=== PATIENT | female | born 1990 | race Caucasian/White ===

== ENCOUNTER 2016-07-26 02:56 | Emergency (ER) | payer OTHER ==
[~2016-07-26] VITALS: Ht 157.5 cm; Wt 46.7 kg
[~2016-07-26 02:56] MED LIST: NO HOME MEDS
--- NOTE | 2016-07-26 05:20 | REPUSA ---
CLINICAL HISTORY: Neck pain. TECHNIQUE: Multiple axial images were obtained through the cervical spine. Images were also reconstru cted in coronal and sagittal planes. The study was performed without IV contrast. COMMENTS: There is no fracture or spondylolisthesis visualized. The paraspinal soft tissues are unremarkable. T here are no lytic or blastic lesions. Straightening of cervical lordosis is seen, suggesting muscular spasm. There is evidence of minimal m ultilevel disk disease, demonstrated by minimal osteophytosis and endplate sclerosis. No significant disk herniation is noted at any level. Canal and foramina remain patent. Mild right apical pneumothorax. IMPRESSION: 1. No fracture or spondylolisthesis. 2. Straightening of cervical lordosis is seen, suggesting muscular spasm. 3. Minimal multilevel spondylosis. 4. Mild right apical pneumothorax. Thank you for your kind referral of this patient.
[2016-07-26] MEDS ORDERED: ISOVUE-370 76% 100ML VIAL (Q9967) As Ordered ONE (05:53)
[2016-07-26 06:06] LABS: BASO % 0.3 % (0.0-1.0); EOS % 0.3 % (0.0-3.0); LARGE UNSTAINED CELL # 0.1 K/mm3 (0.0-0.4); LARGE UNSTAINED CELL % 0.6 % (0.0-4.0); LYMPH # 0.8 K/mm3 (1.5-6.5); LYMPH % 7.3 % (24.0-44.0); MEAN CORPUSCULAR HEMOGLOBIN 32.2 pg (27.0-33.0); MEAN CORPUSCULAR HGB CONC 34.2 g/dl (32.0-36.5); MEAN CORPUSCULAR VOLUME 94.2 fl (80.0-96.0); MONO # 0.4 K/mm3 (0.0-0.8); MONO % 3.9 % (0.0-5.0); NEUTROPHILS # 8.3 K/mm3 (1.8-7.7); NEUTROPHILS % 87.6 % (36.0-66.0); PLATELET COUNT, AUTOMATED 258 k/mm3 (150-450); RED CELL DISTRIBUTION WIDTH 12.6 % (11.5-14.5); WHITE BLOOD COUNT 9.5 K/mm3 (4.0-10.0)
[2016-07-26 06:23] LABS: CONTROL LINE HCG INT CTR LINE PRESENT
[2016-07-26 06:55] LABS: ANION GAP 10 MEQ/L (8-16); BLOOD UREA NITROGEN 7 MG/DL (7-18); CALCIUM LEVEL 8.7 MG/DL (8.5-10.1); CARBON DIOXIDE LEVEL 26 MEQ/L (21-32); CHLORIDE LEVEL 108 MEQ/L (98-107); CREATININE FOR GFR 0.63 MG/DL (0.55-1.02); GLOMERULAR FILTRATION RATE > 60.0 (>60); GLUCOSE, FASTING 95 MG/DL (70-105); POTASSIUM SERUM 4.1 MEQ/L (3.5-5.1); SODIUM LEVEL 144 MEQ/L (136-145)
--- NOTE | 2016-07-26 07:40 | REPUSA ---
CLINICAL HISTORY: Trauma. TECHNIQUE: Multiple axial CT images were obtained through chest with IV contrast material. MPR avery l and sagittal sequences were obtained. COMMENTS: There is no evidence of pleural or parenchymal mass. There are no pleural effusions. There is no evid ence of hilar or mediastinal lymphadenopathy. The heart and great vessels are within normal limits. The visualized portions of the liver are of uniform attenuation without mass or defect. There is no i ntra or extrahepatic biliary ductal dilatation. The spleen is unremarkable. The visualized pancreas i s of normal contour and attenuation characteristics. There is no evidence of adrenal mass. The visual ized portions of the kidneys present no abnormalities. The bony structures are free of lytic or blastic lesions. Multilevel degenerative changes are seen in volving the thoracic spine. Scattered calcifications are seen involving the aorta and visualized saeed r branches compatible with atherosclerosis. No evidence for abnormal enhancement. IMPRESSION: No evidence of acute thoracic pathology. Thank you for your kind referral of this patient.
[2016-07-26 11:13] VITALS: BP 102/55
--- NOTE | 2016-07-26 14:36 | REP ---
CHEST, TWO VIEWS: HISTORY: Chest pain, possible pneumothorax. COMPARISON: None. FINDINGS: The superior mediastinal structures are midline. The cardiac silhouette is unremarkable in size, shape and position. The diaphragmatic surfaces of the lungs are regular and the costophrenic angles are clear. The pulmonary mike are clear. The imaged osseous structures are intact. IMPRESSION: There is no acute cardiopulmonary disease. Signed by Gunnar Mccord DO 07/26/2016 02:49 P
--- NOTE | 2016-07-27 07:09 | REP ---
CHEST, TWO VIEWS: HISTORY: Pneumothorax. COMPARISON: Two hours earlier today. FINDINGS: The superior mediastinal structures are midline. The cardiac silhouette is unremarkable in size, shape and position. The diaphragmatic surfaces of the lungs are regular and the costophrenic angles are clear. The pulmonary mike are clear. The imaged osseous structures are intact. IMPRESSION: There is no acute cardiopulmonary disease. No change. Signed by Gunnar Mccord DO 07/27/2016 09:54 A
== END 2016-07-26 11:00 | disposition home or self-care (01) ==
LOC: EDBD 02:56 → M ED 04:34
DX: J93.83 Other pneumothorax (principal)
CPT/HCPCS: 36415; 70450; 71020; 71260; 72125; 80048; 84703; 85025; 99283; G0480; Q9967

== ENCOUNTER → 2016-07-30 | Outpatient (CLI) | payer OTHER ==
--- NOTE | 2016-07-31 02:02 | REP ---
Clinical: Pneumothorax . Comparison: 07/26/2016 . Technique: PA and lateral. Findings: The mediastinum and cardiac silhouette are normal. The lung mike are clear and without acute consolidation, effusion, or pneumothorax. The skeletal structures are intact and normal. Impression: 1. No acute cardiopulmonary process. Signed by Elian Maya MD 07/31/2016 01:53 A
== END ==
LOC: M SMT 12:59
PROVIDERS: ATTEND Thoracic Surgery (Cardiothoracic Vascular Surgery)
DX: S27.0XXS Traumatic pneumothorax, sequela (principal)

== ENCOUNTER → 2016-11-27 | Outpatient (REF) | payer OTHER | LOC: M LAB REF 16:34 | PROVIDERS: ATTEND Physician Assistant | DX: R30.0 Dysuria (principal) ==

== ENCOUNTER → 2017-08-19 | Outpatient (REF) | payer OTHER ==
[2017-08-20 12:59] LABS: CHLAMYDIA DNA AMPLIFICATION NEGATIVE (NEGATIVE); GC DNA AMPLIFICATION NEGATIVE (NEGATIVE)
== END ==
LOC: M LAB REF 10:10
DX: N39.0 Urinary tract infection, site not specified (principal)

== ENCOUNTER → 2018-06-13 | Outpatient (REF) | payer OTHER | LOC: M LAB REF 12:46 | PROVIDERS: ATTEND Physician Assistant | DX: R30.0 Dysuria (principal) ==

== ENCOUNTER → 2019-04-13 | Outpatient (CLI) | payer OTHER ==
--- NOTE | 2019-04-14 02:54 | REP ---
Clinical: Abnormal uterine bleeding. Technique: Transabdominal pelvic ultrasound with color Doppler evaluation . Findings: Normal anteverted uterus measures 8.1 x 2.6 x 5.4 cm. Endometrial complex measures 4 mm thickness. No discrete uterine or endometrial abnormalities appreciated. Right ovary is normal and measures 4.7 x 1.6 x 2.2 cm (RI 0.63). Left ovary measures 3.8 x 2.5 x 1.9 cm (RI 0.50) and includes 1.5 x 1.3 x 1.4 cm likely physiologic cyst / dominant follicle. Small amount of free fluid noted in the posterior pole cul-de-sac is nonspecific. Impression: 1. Essentially normal pelvic ultrasound as described above. 2. Small left ovarian cyst and small amount of free fluid in the pelvis likely physiologic.
== END ==
LOC: M WHC 13:51
PROVIDERS: ATTEND Specialist
DX: N92.6 Irregular menstruation, unspecified (principal)

== ENCOUNTER → 2020-03-09 | Outpatient (REF) | payer OTHER ==
[2020-03-09 12:13] LABS: HEMATOCRIT 36.5 % (36.0-47.0); HEMOGLOBIN 12.1 g/dl (12.0-15.5); MEAN CORPUSCULAR HEMOGLOBIN 29.9 pg (27.0-33.0); MEAN CORPUSCULAR HGB CONC 33.2 g/dl (32.0-36.5); MEAN CORPUSCULAR VOLUME 90.1 fl (80.0-96.0); PLATELET COUNT, AUTOMATED 219 10^3/uL (150-450); RED BLOOD COUNT 4.05 10^6/uL (4.00-5.40); WHITE BLOOD COUNT 8.1 10^3/uL (4.0-10.0)
[2020-03-09 13:28] LABS: HEPATITIS C VIRUS ABY INDEX 0.1 INDEX (<0.8); HIV 1&2 SCREEN CENTAUR NEGATIVE (NEGATIVE)
== END ==
LOC: M PLALAB 09:01
PROVIDERS: ATTEND Specialist
DX: Z34.81 Encounter for supervision of other normal pregnancy, first trimester (principal)

== ENCOUNTER → 2020-04-06 | Outpatient (CLI) | payer OTHER ==
--- NOTE | 2020-04-08 08:41 | REP ---
INDICATION: PREG, ANATOMY ADD ON COMPARISON: None. TECHNIQUE: Transabdominal obstetrical ultrasound with color Doppler evaluation. FINDINGS: Examination demonstrates a single live intrauterine in breech presentation. motion is identified by technologist. Placenta is noted anterior and grade 0 without evidence for placenta previa or abruption. Amniotic fluid volume is normal. Cervix measures 5.1 cm in length and appears closed.. Gestational age by LMP 18 weeks 4 days with SWAPNIL 09/03/2020. Gestational age by current measurements 17 weeks 3 days with SWAPNIL 09/11/2020. FHR equals 150 beats per minute. BPD: 3.9 cm 17 weeks 5 days HC: 14.0 cm 17 weeks 2 days AC: 12.1 cm 17 weeks 5 days FL: 2.4 cm 17 weeks 1 day HL: 2.4 cm 17 weeks 3 days HC/AC: 1.15 Estimated weight 196 grams (49thpercentile based on age by current measurements). Anatomical assessment is incomplete due to early age. Limited evaluation of the facial features, heart/ventricular outflow tracts, and spine.. IMPRESSION: Single live intrauterine measuring at 17 weeks 3 days gestational age. Complete anatomical assessment should be performed at 19-20 weeks. <Electronically signed by Elian Maya > 04/08/20 0837
== END ==
LOC: M RAD 10:02
PROVIDERS: ATTEND Specialist
DX: Z34.81 Encounter for supervision of other normal pregnancy, first trimester (principal); Z3A.17 17 weeks gestation of pregnancy

== ENCOUNTER → 2020-05-15 | Outpatient (CLI) | payer OTHER ==
--- NOTE | 2020-05-15 12:53 | REP ---
INDICATION: F/U ANATOMY. COMPARISON: Comparison obstetric sonography 06 April 2020.. TECHNIQUE: Transabdominal obstetric sonography. FINDINGS: Scanning through the gravid uterus demonstrates a viable single intrauterine gestation in cephalic lie. motion is observed and heart rate is recorded at 153 beats per minute. A anterior placenta is seen, grade 1, without evidence of placenta previa. Closed cervical length is measured at 3.7 cm transabdominally. No extrauterine abnormality is observed. Amniotic fluid is subjectively normal. No anomaly is seen. The following anatomic structures are identified felt to be unremarkable: cranium and intracranial anatomy, nuchal fold face and profile nose and lips, four-chamber heart with left and right ventricular outflow tract views, diaphragm, left-sided stomach, abdominal wall cord insertion, bilateral kidneys, urinary bladder, spine, three-vessel cord. In conjunction with the prior study, anatomic survey is felt to be complete.. Biometry chart: BPD 5.5 cm, 22 weeks 6 days Head circumference 20.6 cm, 22 weeks 5 days Abdominal circumference 18.6 cm, 23 weeks 2 days Femur length 4.1 cm, 23 weeks 3 days Humeral length 3.9 cm, 23 weeks 5 days HC AC ratio normal 1.11 Cephalic index normal 0.74 Estimated weight 580 g, 1 lb 4 oz, 12 percentile for 24 weeks 1 day IMPRESSION: Viable single intrauterine gestation at 23 weeks 1 days by today's composite sonographic criteria. SWAPNIL by today's sonography September 10, 2020. No complication identified. Expected gestational age estimate based on "established SWAPNIL" September 03, 2020 is 24 weeks 1 day. In conjunction with the prior study, anatomic survey is felt to be complete. <Electronically signed by Rajinder Trivedi > 05/15/20 0227
== END ==
LOC: M WHC 09:53
PROVIDERS: ATTEND Advanced Practice Midwife
DX: Z36.2 Encounter for other antenatal screening follow-up (principal); Z34.02 Encounter for supervision of normal first pregnancy, second trimester; Z3A.24 24 weeks gestation of pregnancy

== ENCOUNTER → 2020-06-01 | Outpatient (REF) | payer OTHER ==
[2020-06-01 14:16] LABS: HEMATOCRIT 32.3 % (36.0-47.0); HEMOGLOBIN 10.1 g/dl (12.0-15.5); MEAN CORPUSCULAR HEMOGLOBIN 28.1 pg (27.0-33.0); MEAN CORPUSCULAR HGB CONC 31.3 g/dl (32.0-36.5); PLATELET COUNT, AUTOMATED 273 10^3/uL (150-450); RED BLOOD COUNT 3.59 10^6/uL (4.00-5.40); WHITE BLOOD COUNT 9.2 10^3/uL (4.0-10.0)
== END ==
LOC: M PLALAB 11:08
PROVIDERS: ATTEND Advanced Practice Midwife
DX: Z34.02 Encounter for supervision of normal first pregnancy, second trimester (principal); Z3A.00 Weeks of gestation of pregnancy not specified
CPT/HCPCS: 36415; 82950; 85027; 86850; 86900; 86901; J2790

== ENCOUNTER 2020-08-03 17:58 | Outpatient (CLI) | payer OTHER ==
[~2020-08-03] VITALS: Ht 157.5 cm; Wt 68.0 kg
[2020-08-03 18:08] VITALS: BP 131/75
[2020-08-03] MEDS ORDERED: FERR325T82 PO (18:20)
[2020-08-03] MEDS ORDERED: OMEP40CA97 PO (18:20)
--- NOTE | 2020-08-03 18:34 | IPNPDOC ---
Text Note Date of Service The patient was seen on 08/03/20. NOTE Outpatient 30yo SWAPNIL 09/03/2020. Presents @ 35w4d with reports of no reassuring movement today. Denies LOF, bleeding or regular UC. No distress, partner at bedside. Cat I tracing, 145. Mild irregular UC not perceived by patient Reassuring maternal/ status. Pt is reassured. Discharged home. Routine precautions. Has appt Thursday. VS,Fishbone, I+O VS, Fishbone, I+O Vital Signs Date Time Temp Pulse Resp B/P (MAP) Pulse Ox O2 Delivery O2 Flow Rate FiO2 08/03/20 18:08 98.8 88 131/75 (93) Judith Obregon CNM August 03, 2020 18:34
== END 2020-08-03 18:58 | disposition home or self-care (01) ==
LOC: M LDO 17:58
PROVIDERS: ATTEND Advanced Practice Midwife
DX: O36.8130 Decreased fetal movements, third trimester, not applicable or unspecified (principal); Z3A.35 35 weeks gestation of pregnancy

== ENCOUNTER → 2020-08-06 | Outpatient (REF) | payer OTHER ==
[~2020-08-06] MED LIST changes: +FERR325T82 PO; +OMEP40CA97 PO
== END ==
LOC: M SFHCWAGY 12:48
PROVIDERS: ATTEND Advanced Practice Midwife
DX: Z34.03 Encounter for supervision of normal first pregnancy, third trimester (principal); Z3A.00 Weeks of gestation of pregnancy not specified

== ENCOUNTER 2020-09-10 20:35 | Inpatient (IN) | payer OTHER ==
[~2020-09-10] VITALS: Ht 157.5 cm; Wt 76.0 kg
[~2020-09-10 20:35] MED LIST changes: +OMEP40CA4 PO; -OMEP40CA97 PO
[2020-09-10] MEDS ORDERED: LACTATED RINGER'S 1000 ML IV STA (20:56)
[2020-09-10] MEDS ORDERED: TRANEXAMIC ACID INJection 1,000 MG in NS 100 ML IV PRN (21:00)
[2020-09-10] MEDS ORDERED: CARBOPROST TROMETHAMINE 250 MCG/ML AMP IM PRN (21:00)
[2020-09-10] MEDS ORDERED: METHYLERGONOVINE MALEATE 0.2 MG/ML VIAL (J2210) IM PRN (21:00)
[2020-09-10] MEDS ORDERED: LIDOCAINE 1% MDV 20ML VIAL INFIL PRN (21:00)
[2020-09-10] MEDS ORDERED: OXYTOCIN DRIP 30 UNITS in IV 1 EA IV PRN (21:00)
[2020-09-10 21:02] VITALS: BP 119/60
--- NOTE | 2020-09-10 21:19 | HPEPDOC ---
Obstetrical History & Physical General Date of Admission Sep 10, 2020 at 20:35 Primary Care Physician: SHELIA RICHARD CNM History of Present Illness Blanca is a 30-year-old female who is a at 41 weeks with an SWAPNIL of 09/03/20 based off of of her LMP and consistent with her first trimester ultrasound. She initiated care in her second trimester of . Her has been complicated by anemia, which she has been taking iron for. She presents for an induction of labor for post dates. She reports active movement. She denies vaginal bleeding, leaking of fluid or contractions. Chief Complaint: Induction of labor, Other (Postdates) Age: 30 : 1 Term: 0 Pre-term: 0 Abortions: 0 Livin Care Care: Good Care Dating Final EDC: Sep 03, 2020 Final EDC by: LMP EGA at Admission: 41 Antepartum Course Height (inches): 62 Pre- weight (lbs.): 109 Admission Weight (lbs.): 167 Change in Weight (lbs.): 58 Past Medical History Past Obstetrical History : Past Obstetrical History: Primgravida [employer] History: No pertinent history Past Medical History Medical History Non-contributory Surgical History: Other (right and left Bartholin gland) Family History Significant Family History: Cancer (colon) Social History Social history Attorney At Law Marital Status: Single Family situation: Spouse/partner home Psychosocial History: No pertinent psych hx * Smoker: current smoker (social smoker-not with ) Alcohol: Denies Drugs: denies Abuse Violence Screening Have you been hit/kicked/slapp: No Have you been sexually assault: No Allergies Coded Allergies: No Known Drug Allergies (Verified Allergy, Unknown, 08/03/20) Medications Scheduled Ferrous Sulfate (Iron) 325 Mg Tablet, 1 TAB PO BID Omeprazole (Omeprazole) 40 Mg Capsule.dr, 40 MG PO DAILY Physical Examination Physical Examination GENERAL: Alert and oriented times three. BREAST: . ABDOMEN: Gravid and non-tender to touch. FETUS: Is vertex (VTX) by sterile vaginal examination (SVE), fetus is vertex (VTX) by Jorge. LUNGS: Clear to auscultation (CTA). EXTREMITIES: Generalized edema. No clonus. Deep tendon reflexes (DTRs) + 2. Laboratory Data 24H LABS Laboratory Tests 2 09/10/20 20:54: Serology Scanned Report Hepatitis B Testing Urine Culture: No Growth Pertinent Laboratoy Data Blood Type: A- RBC Antibody Screen: Negative HIV: Negative Hepatitis B: Negative Hepatitis C: Negative Rapid Plasma Reagin: Nonreactive Rubella: Immune Chlamydia/Gonorrhea: Negative Group B Streptococcus: Negative Glucose Tolerance Test: 69 Anatomy Ultrasound Ultrasound Date: May 15, 2020 Placenta Location: Anterior Normal Anatomy: Yes Placenta Previa: No Estimated Weight (grams): 580 Vaginal Examination Dilation: 1cm Effacement: other (75%) Station: -3 Cervical Consistency: Medium Cervical Position: Posterior Presentation: Cephalic presentation Position: Vertex (occiput) Assessment Heart Rate (FHR): 130 Variability: Moderate Accelerations: Positive Decelerations: None Tocometer Contractions: Yes Frequency: regular Assessment/Plan Assessment IUP at 41 weeks induction for postdates Category I FHR tracing GBS negative Plan Admit to L&D. OOB ad nilda. Diet: regular now then clears after IV Pitocin has been started. Group B Streptococcus (GBS) negative. Labs and intravenous (IV) per unit protocol. Counseled on Cytotec, bernal bulb and IV Pitocin for induction of labor (IOL). Cytotec to be started. Anesthesia consult per patient's request. Lactated Ringers (LR): Bolus 800 mL prior to epidural, then at 125 mL/hr. Anticipate cervical ripening. C-S as appropriate. SHELIA RICHARD CNM Sep 10, 2020 21:19
[2020-09-10] MEDS: LR 1,000 ML IV SCH ×2 (21:40→21:43)
[2020-09-10 21:57] LABS: HEMATOCRIT 34.1 % (36.0-47.0); HEMOGLOBIN 11.2 g/dl (12.0-15.5); MEAN CORPUSCULAR HEMOGLOBIN 28.8 pg (27.0-33.0); MEAN CORPUSCULAR HGB CONC 32.8 g/dl (32.0-36.5); MEAN CORPUSCULAR VOLUME 87.7 fl (80.0-96.0); PLATELET COUNT, AUTOMATED 175 10^3/uL (150-450); RED BLOOD COUNT 3.89 10^6/uL (4.00-5.40); WHITE BLOOD COUNT 9.4 10^3/uL (4.0-10.0)
[2020-09-10] MEDS ORDERED: miSOPROStol 50MCG 1/2 TABLET PO ONE (22:05)
[2020-09-10 22:37] VITALS: BP 121/56
[2020-09-11] VITALS (57 sets, daily range): BP systolic 95–143; BP diastolic 52–83
[2020-09-11] MEDS ORDERED: miSOPROStol 50MCG 1/2 TABLET PO ONE (02:40)
[2020-09-11] MEDS: LR 1,000 ML IV SCH ×3 (05:42→18:11)
--- NOTE | 2020-09-11 09:14 | IPNPDOC ---
Text Note Date of Service The patient was seen on 09/11/20. NOTE Intrapartum Note I assumed care of Blanca this morning at 0730. In brief, she is a 30yo at 41w1d undergoing IOL for LTG. She had IOL started last night with 2 doses of ora l cytotec. This morning she is comfortable, no complaints. Vitals wnl, afebrile Gen: WDWN, sitting comfortably in bed Abdomen: soft, gravid, NTTP Extremities: no edema of BLE SCE: 1/thick/high, very posterior. bernal cervical bulb placed with 40cc NS and 50mcg PV cytotec Cat I-II FHRT for min-mod man with +accels, -decels, bl 135 [place]: irregular ctx Plan to re-eval in 4hr and either re-dose cytotec vs start IV pitocin Will continue to closely monitor Safe to proceed Padma Lozano MD VS,Elan, I+O VS, Elan I+O Laboratory Tests 09/10/20 21:35 Vital Signs Date Time Temp Pulse Resp B/P (MAP) Pulse Ox O2 Delivery O2 Flow Rate FiO2 09/11/20 09:06 98.4 76 16 119/58 (78) I&O- Last 24 Hours up to 6 AM 09/11/20 05:59 Intake Total 875 ml Balance 875 ml Padma Lozano MD Sep 11, 2020 09:14
[2020-09-11] MEDS ORDERED: miSOPROStol 50MCG 1/2 TABLET PV ONE (10:00)
[2020-09-11] MEDS ORDERED: PROMETHAZINE INJ 25 MG/ML VIAL (J2550) IV PRN (14:00)
[2020-09-11] MEDS ORDERED: BUTORPHANOL 2 MG/ML INJ (J0595) IV PRN (14:00)
[2020-09-11] MEDS ORDERED: OXYTOCIN DRIP 30 UNITS in IV 1 EA IV SCH (15:15)
[2020-09-11] MEDS ORDERED: OXYTOCIN 30 UNITS IN 0.9% NaCl 500ML IV BAG (J2590) As Ordered ONE (15:15)
[2020-09-11] MEDS ORDERED: FENTANYL 2MCG/ML ROPIVACAINE 0.2% IN 0.9% NACL 100ML IVBAG As Ordered ONE (19:38)
--- NOTE | 2020-09-11 19:42 | IPNPDOC ---
Text Note Date of Service The patient was seen on 09/11/20. NOTE Intrapartum Note Pt is now feeling ctx as painful and desires epidural. Vitals wnl, afebrile SCE /-2 Cat I-II FHRT for min-mod man, +accels, -decels [place]: ctx q2-3min Anesthesia team aware of pt's desire for epidural Will continue to closely monitor When patient is comfortable, will perform AROM to augment Safe to proceed MD CATHERINE Gomez Fishbone, I+O VSElan I+O Laboratory Tests 09/10/20 21:35 Vital Signs Date Time Temp Pulse Resp B/P (MAP) Pulse Ox O2 Delivery O2 Flow Rate FiO2 09/11/20 18:37 98.6 16 09/11/20 17:25 92 111/60 (77) I&O- Last 24 Hours up to 6 AM 09/11/20 06:00 Intake Total 1000 ml Balance 1000 ml Padma Lozano MD Sep 11, 2020 19:42
[2020-09-11] MEDS ORDERED: ePHEDrine SULFATE 25 MG/5 ML(5MG/ML) SYRINGE IV PRN ×2 (19:55→21:00)
[2020-09-11] MEDS ORDERED: LACTATED RINGER'S 1000 ML IV PRN ×2 (19:55→21:00)
[2020-09-11] MEDS ORDERED: EPIDURAL/PCA KEYS XX PRN ×2 (19:55→21:00)
[2020-09-11] MEDS ORDERED: FENTANYL/ROPIVACAINE/NACL BAG 100 ML EPIDURAL SCH (19:55)
[2020-09-11] MEDS ORDERED: NALOXONE INJ 0.4MG/1ML VIAL (J2310 PER 1MG) IV PRN ×2 (19:55→21:00)
[2020-09-11] MEDS ORDERED: diphenhydrAMINE 50MG/ML VIAL (J1200) IV PRN ×2 (19:55→21:00)
[2020-09-11] MEDS ORDERED: REFRIGERATOR IV KEYS XX PRN ×2 (19:55→21:00)
[2020-09-11] MEDS ORDERED: ONDANSETRON 4MG/2ML VIAL IV PRN ×2 (19:55→21:00)
[2020-09-11] MEDS ORDERED: EPIDURAL COMMENT XX SCH ×2 (19:55→21:00)
[2020-09-11] MEDS ORDERED: ROPIVACAINE HCL IVBAG 200 ML EPIDURAL SCH (21:00)
--- NOTE | 2020-09-11 21:46 | IPNPDOC ---
Text Note Date of Service The patient was seen on 09/11/20. NOTE Intrapartum Note Pt doing better now with epidural, pain well controlled. Vitals wnl, afebrile SCE: /-2, AROM performed with clear fluid noted, well tolerated Cat I-II FHRT for min-mod man, +accels, -decels [place]: ctx q3min Plan to continue to titrate pitocin per protocol Re-check in 2-4hr or earlier as indicated Will continue to closely monitor Safe to proceed Padma Lozano MD VS,Elan, I+O VS, Elan I+O Vital Signs Date Time Temp Pulse Resp B/P (MAP) Pulse Ox O2 Delivery O2 Flow Rate FiO2 09/11/20 18:37 98.6 16 09/11/20 17:25 92 111/60 (77) I&O- Last 24 Hours up to 6 AM 09/11/20 06:00 Intake Total 1000 ml Balance 1000 ml Padma Lozano MD Sep 11, 2020 21:46
--- NOTE | 2020-09-11 23:38 | IPNPDOC ---
Text Note Date of Service The patient was seen on 09/11/20. NOTE Decision for section Pt doing well, comfortable with epidural Vitals wnl, afebrile SCE: /-2, unchanged Cat II FHRT with persistent subtle late decels, min-mod amn, +accels [place]: ctx q3min Patient is unchanged in exam and unable to titrate up on pitocin given the continued Cat II FHRT Discussed with patient my recommendation for section and she is amenable Signed consent forms for PLTCS and blood transfusion Anceph 2g IV and Azithromycin 500mg IV for ppx Bicitra Anesthesia and nursing team aware of plan Will proceed to OR when team is ready Padma Lozano MD VS,Elan, I+O VSElan I+O Vital Signs Date Time Temp Pulse Resp B/P (MAP) Pulse Ox O2 Delivery O2 Flow Rate FiO2 09/11/20 22:52 90 109/60 (76) 09/11/20 22:42 16 09/11/20 21:40 99.6 I&O- Last 24 Hours up to 6 AM 09/11/20 06:00 Intake Total 1000 ml Balance 1000 ml Padma Lozano MD Sep 11, 2020 23:38
[2020-09-11] MEDS ORDERED: ceFAZolin SOD 2 GM in IV 1 EA IV ONE (23:40)
[2020-09-11] MEDS ORDERED: AZITHROMYCIN INJ 500 MG, VIAL MATE ADAPTER 1 EACH in NS 250 ML IV ONE (23:40)
[2020-09-11] MEDS ORDERED: BICITRA 30ML SOLN UDC PO ONE (23:40)
[2020-09-12] VITALS (9 sets, daily range): BP systolic 96–122; BP diastolic 49–71
[2020-09-12] MEDS ORDERED: KETOROLAC 60MG 2ML VIAL As Ordered ONE (01:10)
[2020-09-12] MEDS ORDERED: SODIUM BICARBONATE 8.4% INJ 50MEQ 50 ML VIAL As Ordered ONE (01:10)
[2020-09-12] MEDS ORDERED: ONDANSETRON 4MG/2ML VIAL As Ordered ONE (01:10)
[2020-09-12] MEDS ORDERED: OXYTOCIN 30 UNITS IN 0.9% NaCl 500ML IV BAG (J2590) As Ordered ONE ×2 (01:10→02:30)
[2020-09-12] MEDS ORDERED: MORPHINE PRES-FREE INJ 10 MG/10 ML VIAL (J2274) As Ordered ONE (01:10)
[2020-09-12] MEDS ORDERED: dexameTHASONE 4 MG/ML 1ML VIAL (J1100 PER 1MG) As Ordered ONE (01:10)
[2020-09-12] MEDS ORDERED: LIDOCAINE 2% W/EPINEPHRINE 20ML VIAL **PRES FREE As Ordered ONE (01:10)
[2020-09-12] MEDS ORDERED: PHENYLephrine 500MCG 5ML (100MCG/ML) SYRINGE As Ordered ONE (01:12)
[2020-09-12] MEDS ORDERED: METOCLOPRAMIDE INJ 10MG/2ML VIAL (J2765 PER 1) IV PRN ×2 (01:15→01:45)
[2020-09-12] MEDS ORDERED: NALOXONE INJ 0.4MG/1ML VIAL (J2310 PER 1MG) IV PRN ×2 (01:15)
[2020-09-12] MEDS ORDERED: diphenhydrAMINE 50MG/ML VIAL (J1200) IV PRN (01:15)
[2020-09-12] MEDS ORDERED: NALBUPHINE HCL 10 MG/ML AMP (J2300) IV PRN (01:15)
[2020-09-12] MEDS ORDERED: ONDANSETRON 4MG/2ML VIAL IV PRN ×3 (01:15→01:55)
[2020-09-12] MEDS ORDERED: PERCOCET 5MG/325MG TAB PO PRN ×2 (01:45→01:55)
[2020-09-12] MEDS ORDERED: fentaNYL 100 MCG/2 ML INJECTION (J3010) IV PRN (01:45)
[2020-09-12] MEDS ORDERED: LR 1,000 ML IV SCH (01:45)
[2020-09-12 01:46] LABS: CORD GAS ABE A -2.8; CORD GAS HCO3 A 25.7 MEQ/L; CORD GAS HCO3 V 23.9 MEQ/L; CORD GAS O2 SAT A 36.3 %; CORD GAS O2 SAT V 65.8 %; CORD GAS PCO2 V 44.6 mmHg; CORD GAS PH A 7.25 UNITS; CORD GAS PH V 7.347 UNITS; CORD GAS PO2 A 18.7 mmHg; CORD GAS PO2 V 27.5 mmHg; CORD GAS SBC A 20.6 MEQ/L; CORD GAS TCO2 A 27.6 MEQ/L; CORD GAS TCO2 V 25.3 MEQ/L
[2020-09-12] MEDS ORDERED: RHOGAM 300 MCG (1500 IU) INJ (J2790) IM SCH (01:55)
[2020-09-12] MEDS ORDERED: MEASLES,MUMPS,RUBELLA VACCINE INJ (MMR-II) (90707) SC SCH (01:55)
[2020-09-12] MEDS ORDERED: OXYTOCIN DRIP 30 UNITS in IV 1 EA IV SCH (01:55)
[2020-09-12] MEDS ORDERED: SIMETHICONE 80MG CHEW TAB PO PRN (01:55)
[2020-09-12] MEDS ORDERED: IBUP80TA PO (04:54)
[2020-09-12] MEDS ORDERED: DOK1CAP7 PO (04:54)
[2020-09-12] MEDS ORDERED: PERCOCET PO (04:54)
[2020-09-12] MEDS: PRENATAL VITAMINS CHEWABLE TABLET PO SCH (07:31)
[2020-09-12] MEDS: KETOROLAC 30 MG/ML 1ML VIAL IV SCH ×3 (07:31→19:53)
[2020-09-12] MEDS: DOCUSATE SODIUM 100MG CAPSULE PO SCH ×2 (07:31→19:53)
--- NOTE | 2020-09-12 07:48 | RO ---
OPERATIVE NOTE DATE OF OPERATION: 09/12/2020 SURGEON: Padma Lozano MD LINING MECHANIC: Dr. Salvatore Shah INDICATION FOR OPERATION: Blanca is a 30-year-old G1, now P1,0,0,1 who was undergoing an induction of labor at 41 weeks 1 day for late term gestation. She progressed with Wall bulb, Cytotec and Pitocin and eventually AROM with clear fluid but ultimately at 6 cm experienced a non-reassuring heart rate tracing with persistent late heart rate decelerations. Given that she had persistent category 2 heart rate tracing remote from delivery I counseled her on my recommendation for primary section. PREOPERATIVE DIAGNOSIS: Non-reassuring heart rate tracing, category 2 remote from delivery. POSTOPERATIVE DIAGNOSIS: Non-reassuring heart rate tracing, category 2 remote from delivery. MATERIAL FORWARDED TO LAB FOR EXAMINATION: Cord gases; arterial pH 7.25, base excess -2.8, venous pH 7.347, base excess -2. DESRIPTION OF FINDINGS: Female infant in cephalic presentation, Apgars 8 and 9, weight 3430 gm or 7 pounds 9 ounces. Normal appearing uterus. INFECTION CLASSIFICATION: 2. ESTIMATED BLOOD LOSS: 600 mL. URINE OUTPUT: 200 mL of clear yellow urine. IV FLUIDS: 1150 mL of lactated Ringer's. OPERATION PERFORMED: Primary low transverse section. ANESTHESIA: DESCRIPTION OF PROCEDURE: After obtaining informed consent the patient was taken to the operating room. She had received an epidural prior, Wall catheter was already in place, bilateral sequential compression devices were placed. She received 2 gm of IV Ancef prophylactically as well as 500 mg of IV Azithromycin. Time out was performed to confirm patient name, date of , procedure and indication and the team was in agreement. Epidural anesthesia was found to be adequate using Allis clamp. Pfannenstiel skin incision was made with scalpel and carried through to the underlying layer of fascia. Fascia was incised in the midline and the incision was extended laterally with Gonzales scissors. Superior and inferior aspects of the fascial incision were grasped with Kelley clamps, elevated and the underlying rectus muscles were dissected off bluntly and sharply. Peritoneum was entered digitally and the rectus muscles were in the midline. Peritoneal incision was extended superiorly and inferiorly with good visualization of the bladder. Mobius retractor was inserted. Vesicouterine peritoneum was identified, grasped with pickups and entered sharply with Metzenbaum scissors. Incision was extended laterally and the bladder flap was created digitally. Lower uterine segment was scored in transverse fashion with scalpel and the uterus was entered bluntly and the incision extended with traction. The 's head was elevated to level of the incision. At that point we had some difficulty, using fundal pressure to deliver the head fully so a vacuum was placed on the head as posteriorly as possible and the suction was activated into the green zone and so with gentle assistance of vacuum and fundal pressure the head was delivered and suction was removed. There were no popoffs. Anterior shoulder, posterior shoulder and corpus were delivered without difficulty. Nose and mouth were suctioned with bulb suction. Cord was clamped x2 and cut, was handed off to the awaiting nursing team. Cord gases were obtained and blood for maternal blood type. Placenta was removed manually. Uterus was left in situ and cleared of all clot and debris. Uterine incision was repaired with #0 Vicryl suture in running locking fashion, second layer of #0 Monocryl was used to close the hysterotomy incision in imbricating fashion. Uterine incision was inspected, hemostasis was noted. Gutters were cleared of all clots. Peritoneum was closed using 3-0 Vicryl suture in running fashion. Fascia was reapproximated with #0 Vicryl suture in running fashion. Subcutaneous tissue was copiously irrigated. Stevie's fascia was reapproximated using 3-0 Vicryl suture in running fashion. Skin edges were reapproximated using interrupted stitches using 3-0 Vicryl suture followed by running subcuticular stitch using 4-0 Monocryl suture. Incision was cleaned with wet lap, dried with dry lap, Steri-Strips were applied in the usual fashion perpendicular to the Pfannenstiel incision and Optifoam dressing was placed overlying. The vagina was cleared of all blood clot without active bleeding noted; fundus was firm at U-1 cm. All counts were correct x2. Procedure was without complications. The patient tolerated the procedure well and she was taken to the recovery room on Labor and Delivery in stable condition.
[2020-09-12] MEDS: PERCOCET 5MG/325MG TAB PO PRN (09:57)
[2020-09-13 02:28] VITALS: BP 105/51
[2020-09-13] MEDS: IBUPROFEN 800 MG TAB PO SCH ×3 (03:00→19:53)
[2020-09-13 06:22] VITALS: BP 99/51
[2020-09-13] MEDS: PRENATAL VITAMINS CHEWABLE TABLET PO SCH (08:12)
[2020-09-13] MEDS: DOCUSATE SODIUM 100MG CAPSULE PO SCH ×2 (08:12→21:36)
[2020-09-13] MEDS: PERCOCET 5MG/325MG TAB PO PRN (08:14)
[2020-09-13 08:20] LABS: HEMATOCRIT 27.2 % (36.0-47.0); HEMOGLOBIN 8.6 g/dl (12.0-15.5); MEAN CORPUSCULAR HEMOGLOBIN 29.1 pg (27.0-33.0); MEAN CORPUSCULAR HGB CONC 31.6 g/dl (32.0-36.5); MEAN CORPUSCULAR VOLUME 91.9 fl (80.0-96.0); PLATELET COUNT, AUTOMATED 149 10^3/uL (150-450); RED BLOOD COUNT 2.96 10^6/uL (4.00-5.40)
[2020-09-13 10:00] VITALS: BP 105/56
[2020-09-13 14:00] VITALS: BP 115/53
[2020-09-13 17:56] VITALS: BP 109/64
[2020-09-13 22:00] VITALS: BP 107/53
[2020-09-14] MEDS: PERCOCET 5MG/325MG TAB PO PRN (00:58)
[2020-09-14 02:00] VITALS: BP 96/60
[2020-09-14] MEDS: IBUPROFEN 800 MG TAB PO SCH (04:00)
[2020-09-14 06:00] VITALS: BP 105/51
--- NOTE | 2020-09-14 07:29 | OBDS ---
[facility] Obstetrical Discharge Sum. Obstetrical Discharge Summary Date: Sep 14, 2020 Time: 07:24 : 1 Term: 1 Pre-term: 0 Abortions: 0 Livin VDRL: Non-Reactive Rh: Positive Rubella: Immune Infant Sex: Female Anesthesia: Regional Anesthesia A/P, Post Course List any complications Admission diagnosis: Term for induction of labor. Discharge diagnosis: Persistant Category II tracing at term remote from delivery; Low H/H due to blood lost- stable Condition at Discharge: [stable] Discharge Instructions: [Call if severe bleeding, pain, dizziness or persistant Shortness of breath] Activity: [as tolerated] Diet: [regular] Medications: [see list] Follow-up: [2 weeks] Other: Donnell Damon DO Sep 14, 2020 07:29
[2020-09-14] MEDS: PRENATAL VITAMINS CHEWABLE TABLET PO SCH (08:43)
[2020-09-14] MEDS: DOCUSATE SODIUM 100MG CAPSULE PO SCH (08:43)
[2020-09-14 09:02] LABS: HEMATOCRIT 29.1 % (36.0-47.0); HEMOGLOBIN 9.2 g/dl (12.0-15.5); MEAN CORPUSCULAR HEMOGLOBIN 28.9 pg (27.0-33.0); MEAN CORPUSCULAR HGB CONC 31.6 g/dl (32.0-36.5); MEAN CORPUSCULAR VOLUME 91.5 fl (80.0-96.0); PLATELET COUNT, AUTOMATED 172 10^3/uL (150-450); RED BLOOD COUNT 3.18 10^6/uL (4.00-5.40)
[2020-09-14 10:00] VITALS: BP 119/65
== END 2020-09-14 11:45 | disposition home or self-care (01) | DRG 540 ==
LOC: M LDI 20:35 → M OBS 09-12 04:05
PROVIDERS: ADMIT Advanced Practice Midwife; ATTEND Obstetrics & Gynecology
PROC: 3E0P7GC Introduction of Other Therapeutic Substance into Female Reproductive, Via Natural or Artificial Opening (ICD-10-PCS; 2020-09-10)
PROC: 10907ZC Drainage of Amniotic Fluid, Therapeutic from Products of Conception, Via Natural or Artificial Opening (ICD-10-PCS; 2020-09-11)
PROC: 10D00Z1 Extraction of Products of Conception, Low, Open Approach (ICD-10-PCS; principal; 2020-09-12 00:45)
DX: O48.0 Post-term pregnancy (principal); Z3A.41 41 weeks gestation of pregnancy; O99.02 Anemia complicating childbirth; D64.9 Anemia, unspecified; O76 Abnormality in fetal heart rate and rhythm complicating labor and delivery; Z37.0 Single live birth